=== PATIENT | female | born 1980 | race Two or more races ===

== ENCOUNTER 2020-08-23 10:09 | Outpatient (CLI) | payer OTHER | END 2020-08-23 23:59 | disposition home or self-care (01) | LOC: LAB 10:09 | PROVIDERS: ATTEND Specialist | DX: Z01.812 Encounter for preprocedural laboratory examination (principal); Z20.828 Contact with and (suspected) exposure to other viral communicable diseases | CPT/HCPCS: 87426; C9803; U0003 ==

== ENCOUNTER 2020-08-26 05:09 | Inpatient (IN) | payer OTHER ==
[~2020-08-26] VITALS: Ht 160 cm; Wt 76.7 kg
[2020-08-26] MEDS ORDERED: ANESTHESIA TRAY IN PYXIS 1 EA TRAY MC ONE (06:10)
[2020-08-26] MEDS ORDERED: BUPIVACAINE 0.5 % PF 150 MG/30 ML VIAL ONE (06:10)
[2020-08-26] MEDS ORDERED: MIDAZOLAM HCL 2 MG/2ML VIAL ONE (06:12)
[2020-08-26] MEDS ORDERED: FENTANYL PF 250MCG/5ML AMPUL ONE ×2 (06:13)
[2020-08-26] MEDS ORDERED: FENTANYL PF 100MCG/2ML AMPUL ONE (06:13)
[2020-08-26] MEDS ORDERED: HYDROMORPHONE INJ 2 MG/ML DISP.SYRIN ONE (06:14)
[2020-08-26] MEDS ORDERED: BUPIVACAINE 0.25% 75 MG/30 ML VIAL ONE (06:14)
[2020-08-26] MEDS ORDERED: FAMOTIDINE/PF INJ 20 MG/2 ML VIAL IV ONE (06:15)
--- NOTE | 2020-08-26 06:36 | NUR ---
MS2/RN RECEIVED PATIENT FOR DAY SURGERY AT AROUND 0520, AMBULATORY WITH CRUTCHES. PATIENT WAS MADE COMFORTABLE IN BED, PATIENT WAS AWAKE, ALERT, ORIENTED, COMFORTABLE, NO C/O PAIN, NO DISTRESS NOTED, PRICILLA, RN, INSERTED IV AT LET F/A G 22, OR PAPER WORKS DONE, ANESTHESIOLOGIST TALKED TO THE PATIENT. PATIENT WAS PICKED UP AT AROUND 0610.
[2020-08-26] MEDS ORDERED: ONDANSETRON HCL/PF 4 MG/2 ML VIAL IVP PRN (09:30)
[2020-08-26 09:45] VITALS: BP 114/60
--- NOTE | 2020-08-26 09:45 | NUR ---
MS ADMISSION RN NOTES RECEIVED PT FROM O.R. S/P LEFT MEDIAL MENISCUS DEBRIDEMENT ANTERIOR CRUCIATE LIGAMENT RECONSTRUCTION BY DR NGUYEN.WITH LEFT KNEE SURGICAL DRESSING DRY,CLEAN AND INTACT.LT KNEE IMMOBILIZER AND PRISCA. CRUTCHES AT THE BEDSIDE. ON REGULAR DIET.NO PAIN, SOB OR DISTRESS AT THIS TIME AND PT WANTS TO SLEEP.PT WAS UNDER GEN ANESTHESIA AND NERVE BLOCK IN O.R. IV H/L INTACT TO LFA. ORIENTATION GIVEN ON THE USE OF CALL LIGHT. WITH STABLE V/S. WILL CONTINUE TO MONITOR.CALL LIGHT PLACED WITHIN REACH.
[2020-08-26] MEDS ORDERED: METO50TA16 PO (10:50)
[2020-08-26] MEDS: HYDROCODONE/APAP 5/325MG TABLET PO PRN ×3 (10:58→21:17)
[2020-08-26 16:00] VITALS: BP 120/54
[2020-08-26] MEDS: ONDANSETRON HCL/PF 4 MG/2 ML VIAL IVP PRN (17:12)
--- NOTE | 2020-08-26 18:25 | NUR ---
Closing Notes: Patient in bed alert, awake and oriented x4. Patient able to make needs known. No s/s of distress noted. No SOB. VS WNL. No changes in LOC noted. Patient ambulatory with assist. Assisted to the bathroom. Patient tolerated treatment and care. Fall and safety precautions observed. Needs anticipated and attended. Patient reminded to use call light for assistance. Call light within easy reach. Will endorse continuity of care to next shift.
--- NOTE | 2020-08-26 19:15 | NUR ---
MS RN NOTES RECEIVED ON BED A/O X4,NOT IN NAY FORM OF DISTRESS.S/P LEFT MEDIAL MINISCUS DEBRIDEMENT WITH RECONSTRUCTION BY DR NGUYEN TODAY 08/26,DRESSING INTACT AND DRY.SALINE LOCK LEFT FORE ARM INTACT AND PATENT.PAIN TOLERABLE AT THE MOMENT.CALL LIGHT IN REACH,NEEDS ANTICIPATED.
[2020-08-26 20:00] VITALS: BP 119/78
--- NOTE | 2020-08-26 21:17 | NUR ---
MS RN NOTES PAIN MANAGEMENT C/P PAIN 10/10 ON LEFT KNEE,[place] 5/325MG 2 TABS PO GIVEN FOR SEVERE PAIN.LEFT KNEE SUPPORTED WITH PILLOW PER PATIENT REQUEST.
[2020-08-27] MEDS: ONDANSETRON HCL/PF 4 MG/2 ML VIAL IVP PRN (01:43)
[2020-08-27] MEDS: HYDROCODONE/APAP 5/325MG TABLET PO PRN ×3 (01:43→10:25)
--- NOTE | 2020-08-27 01:43 | NUR ---
MS RN NOTES PAIN MANAGEMENT AWAKE,C/O LEFT KNEE PAIN 9/10 ON PAIN SCALE,[place]CO 5/325MG,2 TABS PO GIVEN,ALONG WITH ZOFRAN 4MG IV FOR NAUSEA.
--- NOTE | 2020-08-27 05:54 | NUR ---
MS RN NOTES C/O LEFT KNEE PAIN 10/10 ON PAIN SCALE,NORCO 5/325MG,2 TABS PO GIVEN PER PATIENT REQUEST.
--- NOTE | 2020-08-27 06:22 | NUR ---
MS RN NOTES SLEPT WITH INTERVALS,WEARING OFF FROM ANESTHESIA,ASKING FOR PAIN MANAGEMENT EVERY FOUR HOURS,GIVEN [place] 2 TABS PER PATIENT REQUEST.NWB LEFT LOWER EXTREMITY,CRUTCHES AT BEDSIDE.POSSIBLE DISCHARGE HOME TODAY.CALL HETAL REACH,NEEDS ATTENDED.
--- NOTE | 2020-08-27 07:41 | NUR ---
RN Opening Note Received patient in bed resting, AO x 4 able to responds all stimuli, patient s/p left knee surgery yesterday and had [place] 5/325mg x 2 tabs at 0554. Respiratory even and unlabored on room air, O2sat 98%, no distress observed. Keep locked bed with elevated HOB for ensure airway, and lowest position for safety. Call light within reach, will continue to monitor.
[2020-08-27 08:06] VITALS: BP 142/71
--- NOTE | 2020-08-27 10:34 | NUR ---
Given discharge instruction include prescriptions/medications and side effects, follow up with Dr. Rodgers who will dressing change and how to use immobilizer. Vital sign is stable, pt done PT evaluation and passed.
--- NOTE | 2020-08-27 11:45 | NUR ---
Patient discharged facility accompanied by staff to private car with wheel chair, in stable condition.
--- NOTE | 2020-08-30 11:38 | NUR ---
Late Entry for 08/27/20 Primary Nurse given [place] 5/325mg 2 tabs patient at 10:25 AM, but documented was wrong (signed [place] 5/325mg 1tab) on [place] and unable to re fix on [place] due to pt d/c and order has been d/c. Did undo [place] 5/325mg 1tab on 08/27/20, actuality administer [place] 2tabs.
== END 2020-08-27 12:00 | disposition home or self-care (01) | DRG 313 ==
LOC: DS 05:09 → MED 05:11
PROVIDERS: ADMIT Internal Medicine; ATTEND Internal Medicine
PROC: 0MRP47Z Replacement of Left Knee Bursa and Ligament with Autologous Tissue Substitute, Percutaneous Endoscopic Approach (ICD-10-PCS; principal; 2020-08-26)
PROC: 0LBR4ZZ Excision of Left Knee Tendon, Percutaneous Endoscopic Approach (ICD-10-PCS; 2020-08-26)
PROC: 0SBD4ZZ Excision of Left Knee Joint, Percutaneous Endoscopic Approach (ICD-10-PCS; 2020-08-26)
DX: S83.512A Sprain of anterior cruciate ligament of left knee, initial encounter (principal); S83.242A Other tear of medial meniscus, current injury, left knee, initial encounter; X58.XXXA Exposure to other specified factors, initial encounter; Y92.9 Unspecified place or not applicable; I10 Essential (primary) hypertension; M94.262 Chondromalacia, left knee; M65.9 Synovitis and tenosynovitis, unspecified; J45.909 Unspecified asthma, uncomplicated
CPT/HCPCS: 84703-TC; 87081-TC; 97112-TC; 97116-TC; 97530-TC; A4217; C1713; G0378; J0690; J1170; J1885; J2250; J2405; J2704; J2765; J3010; J3490; L1830